=== PATIENT | female | born 1970 | race African-American/Black ===

== ENCOUNTER 2016-08-15 10:00 | Day surgery (SDC) | payer MEDICARE, OTHER ==
--- NOTE | ~2016-08-15 | EGD ---
EGD REPORT [facility] [address] [address] NAME: NAOMI MALIK : 66 STATUS : REG [facility]#: [id number] AGE: 46 ADM/REG DATE : 08/15/16 MR#: [id number] REPORT SERV DATE: 08/15/16 DICTATED BY: EDWARD BEARD DATE: 08/15/16 REPORT STATUS : Draft TRANSCRIBED BY: [facility] DATE: 08/15/16 Endoscopy Center Patient Name: Naomi Malik Date of : 1970 Attending MD: EDWARD BEARD MD Procedure Date No Time: 08/15/2016 Procedure: Upper GI endoscopy Indications: Chest pain (non cardiac) Referring MD: PEARL WILSON Medicines: Monitored Anesthesia Care Complications: No immediate complications. Procedure: Pre-Anesthesia Assessment: - ASA Grade Assessment: III - A patient with severe systemic disease. After obtaining informed consent, the endoscope was passed under direct vision. Throughout the procedure, the patient's blood pressure, pulse, and oxygen saturations were monitored continuously. The GIF [id number] was introduced through the mouth, and advanced to the second part of duodenum. The upper GI endoscopy was accomplished without difficulty. The patient tolerated the procedure well. Findings: The Z-line was irregular and was found at the gastroesophageal junction. Biopsies were taken with a cold forceps for histology. The entire examined stomach was normal. The duodenal bulb and 2nd part of the duodenum were normal. The cardia and gastric fundus were normal on retroflexion. Impression: - Z-line irregular, at the gastroesophageal junction. Biopsied. - Normal stomach. - Normal duodenal bulb and 2nd part of the duodenum. Recommendation: - Patient has a contact number available for emergencies. The signs and symptoms of potential delayed complications were discussed with the patient. Return to normal activities tomorrow. Written discharge instructions were provided to the patient. - Regular diet. - Continue present medications. - Follow an antireflux regimen. - Return to GI clinic in 4 weeks. EGD REPORT [facility] [address] [place] [address]. [id number] NAME: NAOMI MALIK : [birth year] STATUS : REG [facility]#: [id number] AGE: 46 ADM/REG DATE : 08/15/16 MR#: [id number] REPORT SERV DATE: 08/15/16 DICTATED BY: EDWARD BEARD DATE: 08/15/16 REPORT STATUS : Draft TRANSCRIBED BY: [employer] DATE: 08/15/16 Procedure Code(s): --- Professional --- 55628, Esophagogastroduodenoscopy, flexible, transoral; with biopsy, single or multiple Diagnosis Code(s): --- Professional --- K22.8, Other specified diseases of esophagus R07.89, Other chest pain CPT copyright 2013 [employer]. All rights reserved. The codes documented in this report are preliminary and upon content assistant review may be revised to meet current compliance requirements. EDWARD BEARD MD 08/15/2016 12:48 PM This report has been signed electronically. Number of Addenda: 0 Note Initiated On: 08/15/2016 12:28 PM Scope Withdrawal Time 0 hours 0 minutes 0 seconds [address] [place] [address]
[~2016-08-15 10:00] MED LIST: ASAB PO; CELLCEPT5 PO; CITRACAL PO; CLARIT10 PO; FLOVENT110 INH; IMDUR30 PO; L40 PO; LOTE5 PO; MAGOX4 PO; NEXIUM40 PO; P5 PO; PAX20 PO; PRAVACHOL40 MG PO; ROCALTROL0.25 MCG PO; SODBICAR10 PO; TUMS PO; VITD PO
== END 2016-08-15 23:59 | disposition home or self-care (01) ==
LOC: DMU 10:00
PROVIDERS: Internal Medicine Gastroenterology
PROC: 0DB48ZX Excision of Esophagogastric Junction, Via Natural or Artificial Opening Endoscopic, Diagnostic (ICD-10-PCS; principal; 2016-08-15 10:00)
DX: K20.9 Esophagitis, unspecified (principal); J45.909 Unspecified asthma, uncomplicated; I10 Essential (primary) hypertension; E78.00 Pure hypercholesterolemia, unspecified; E66.01 Morbid (severe) obesity due to excess calories; E78.5 Hyperlipidemia, unspecified; Z86.73 Personal history of transient ischemic attack (TIA), and cerebral infarction without residual deficits; Z94.0 Kidney transplant status; Z88.0 Allergy status to penicillin; Z88.2 Allergy status to sulfonamides; Z88.5 Allergy status to narcotic agent; Z88.8 Allergy status to other drugs, medicaments and biological substances; Z88.1 Allergy status to other antibiotic agents; Z79.82 Long term (current) use of aspirin; Z79.899 Other long term (current) drug therapy; Z98.890 Other specified postprocedural states
CPT/HCPCS: 84703; 88305

== ENCOUNTER 2016-12-29 14:34 | Inpatient (IN) | payer MEDICARE, OTHER ==
[~2016-12-29] VITALS: Ht 165.1 cm; Wt 101.7 kg
--- NOTE | ~2016-12-29 | HP ---
History And Physical [facility] [address] [place]. [address] NAME: ASHLYN MALIK : [birth year] STATUS : ADM IN [facility]#: [id number] AGE: 46 ADM/REG DATE : 12/29/16 MR#: [id number] REPORT SERV DATE: 12/29/16 DICTATED BY: DATE: REPORT STATUS : Draft TRANSCRIBED BY: MODL DATE: 12/29/16 DATE OF ADMISSION: 12/29/2016 CHIEF COMPLAINT: Right thigh pain. HISTORY OF PRESENT ILLNESS: Ms. Malik is a 46-year-old black female with end-stage renal disease. She is status post donor renal transplant in 2014 at [place]. She feels like her baseline creatinine is somewhere in the 2s. She has had a two month history of right thigh pain and was diagnosed with thrombophlebitis and felt to have a secondary infection as well, given clindamycin and despite this, she has continued to have induration to the area, redness, swelling and pain that is debilitating. Therefore, she presented to the emergency room. She is denying any fevers, chills, but states her pain exacerbates at night when she lies down. No swelling to the ankles, no streaking of thigh. No shortness of breath, chest pain, tightness, or pressure. PAST MEDICAL HISTORY: End-stage renal disease felt due to hypertension. 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 She has got secondary hyperparathyroidism and underwent a parathyroidectomy in 2012 and has had problems with recurrent hypocalcemia. FAMILY MEDICAL HISTORY: Negative for any end-stage renal disease. SOCIAL HISTORY: She lives by herself. No tobacco, alcohol, or illicit drug use. Currently unemployed. ALLERGIES: CINACALCET, PENICILLIN, SULFA, QUINOLONES, THEOPHYLLINE, CODEINE, AZITHROMYCIN, AND ATORVASTATIN. MEDICATIONS: Unavailable for review at this time. We will review when med rec is completed. REVIEW OF SYSTEMS: A 12-point review of systems obtained and is negative with the exception of that in HPI. PHYSICAL EXAMINATION: VITAL SIGNS: Temp 98.5, blood pressure 134/75, pulse 82, respiratory rate 18, O2 saturation is 100% on room air. GENERAL: This is a pleasant cooperative white female. She is awake, alert, and oriented x3. No acute distress. Answers questions appropriately. HEENT: Normocephalic, atraumatic. Conjunctivae are clear. Sclerae are anicteric. Pupils are equal and round. Oral mucosa is moist. NECK: Supple. Carotids are brisk. Neck veins are flat. No lymphadenopathy. CHEST: Respirations are even and unlabored. Breath sounds clear to auscultation. CARDIAC: Heart rate is regular. No murmur, rub, or gallop. ABDOMEN: Soft and nontender. Bowel sounds active and no masses or hepatosplenomegaly. Palpable transplanted kidney to the right lower quadrant. No CVA tenderness. BACK: Within normal limits. History And Physical [place] [address] [facility] [place]. [address] NAME: ASHLYN MALIK : [birth year] STATUS : ADM IN [facility]#: [id number] AGE: 46 ADM/REG DATE : 12/29/16 MR#: [id number] REPORT SERV DATE: 12/29/16 DICTATED BY: DATE: REPORT STATUS : Draft TRANSCRIBED BY: MODL DATE: 12/29/16 EXTREMITIES: No edema to the ankles. No cyanosis. No clubbing. To the right thigh, she has approximately a tennis ball size diameter area of induration without fluctuance. There is open area approximately 2 inches in length. No drainage is noted from it. There is some mild erythema. No specific warmth. NEURO: No focal deficits. PSYCHIATRIC: Mood and affect are pleasant and appropriate. PERTINENT LABS AND X-RAYS: WBCs 5.1, H and H 12 and 37, platelets 233,000. IMPRESSION: 1. Right thigh with possible secondary cellulitis. 2. Thrombophlebitis. 3. Renal transplant, donor in 2014 at [place] with baseline creatinine in the 2s. 4. Hypertension. 5. Multiple drug allergies. She denies any anaphylaxis. PLAN: Admit. Follow up on the ultrasound that is being obtained at this time, see if it shows an abscess. We are starting her empirically on Maxipime and vancomycin and start usual medicines as appropriate, and further orders and recommendations pending clinical course. ARASELI/LOIDA TARUN Lopez / [id number] CC: Daria Ortiz M.D.
--- NOTE | ~2016-12-29 | OP ---
Record Of Operation [facility] [address] [place]. [address] NAME: ASHLYN MUÑIZ : 66 STATUS : ADM IN PAT#: [id number] AGE: 46 ADM/REG DATE : 12/29/16 MR#: [id number] REPORT SERV DATE: 12/31/16 DICTATED BY: FAISAL RAUSCH DATE: 12/31/16 REPORT STATUS : Draft TRANSCRIBED BY: MODL DATE: 12/31/16 DATE OF PROCEDURE: 12/31/2016 PREOPERATIVE DIAGNOSIS: Inflammatory infected mass of the right inner upper thigh. POSTOPERATIVE DIAGNOSIS: Inflammatory infected mass of the right inner upper thigh. SURGERY PERFORMED: Primary excision of inflammatory mass, upper inner thigh, approximately 8 x 4 cm. METROLOGY TECHNICIAN: Cristino. DESCRIPTION OF PROCEDURE: The patient placed under general anesthesia. The right thigh prepped and draped in a sterile fashion. Preoperatively, she was found to have an area on the inner thigh of indurated skin with excoriation and a subcutaneous mass affect. An elliptical incision made around this lesion again approximately 8 x 4 cm, carried through the skin and subcutaneous tissue. The cautery was used to remove the inflammatory mass from the subcutaneous tissue. No purulent material was noted and this appeared to be more inflammatory than infected. The wound was then irrigated and closed with 3-0 Vicryl for the subcutaneous tissue. Skin closed with interrupted vertical 4-0 Prolene sutures. Then sterile dressings were applied. Estimated blood loss 20 mL. She tolerated the procedure well and went to recovery room in good condition. MG/LOIDA Faisal Rausch M.D. / [id number] CC: Daria Ortiz M.D.
[2016-12-29 16:12] LABS: BASOPHILS 0.2 %; BASOPHILS ABSOLUTE 0.01 10/3/uL (0.0-0.16); EOSINOPHILS 1.2 %; EOSINOPHILS ABSOLUTE 0.06 10/3/uL (0.0-0.53); ER CBC TAT 0 Hrs 07 Mins; HEMOGLOBIN 12.1 g/dL (12.0-16.0); IMMATURE GRANULOCYTES 0.8 %; IMMATURE GRANULOCYTES ABSOLUTE 0.04 10/3/uL (0.0-0.11); LYMPHOCYTES 31.8 %; LYMPHOCYTES ABSOLUTE 1.62 10/3/uL (0.67-4.30); MEAN CORPUS HGB CONC 32.6 g/dL (32.0-36.0); MEAN CORPUSCULAR HEMOGLOB 28.5 pg (26.0-34.0); MEAN CORPUSCULAR VOLUME 87.5 fL (80-100); MEAN PLATELET VOLUME 10.6 fL (9.2-13.0); MONOCYTES ABSOLUTE 0.46 10/3/uL (0.21-1.20); NEUTROPHILS ABSOLUTE 2.91 10/3/uL (2.02-8.40); RBC DISTRIBUTION WIDTH 14.6 % (12.0-16.0); RED CELL COUNT 4.24 10/6/uL (4.0-5.6); WHITE BLOOD CELLS 5.1 10/3/uL (4.5-10.5)
[2016-12-29 16:15] LABS: HEMATOCRIT 37.1 % (36.0-48.0); MANUAL DIFF NO %; PLATELET COUNT 233 10/3/uL (150-400)
[2016-12-29 16:28] LABS: CHLORIDE, SERUM 99 MMOL/L (96-112); CO2 (CARBON DIOXIDE) 24 MMOL/L (24-34); CPK 136 U/L (0-200); POTASSIUM, SERUM 4.1 MMOL/L (3.5-5.3); SGPT(ALT) 22 U/L (5-65); SODIUM, SERUM 133 MMOL/L (135-148); TOTAL BILIRUBIN 0.6 MG/DL (0-1.2); TOTAL PROTEIN 8.4 G/DL (6.0-8.5)
[2016-12-29 16:41] LABS: A/G RATIO 0.9 (0.7-1.9); ALBUMIN 3.9 G/DL (3.5-5.0); ALKALINE PHOSPHATASE 151 U/L (45-117); BUN (BLOOD UREA NITROGEN) 25 MG/DL (6-23); GFR AFRICAN AMERICAN 28 ML/MIN (>=60); GFR NON AFRICAN AMERICAN 24 ML/MIN (>=60); GLOBULIN 4.5 G/DL (2.5-4.1); GLUCOSE, SERUM 89 MG/DL (60-99); SGOT(AST) 25 U/L (5-40)
[2016-12-29] MEDS ORDERED: BREO ELLIPTA INH (17:06)
[2016-12-29] MEDS ORDERED: TUMSROLL PO (17:07)
[2016-12-29] MEDS ORDERED: PROAIR HFA INH (17:07)
[2016-12-29] MEDS ORDERED: IMDUR30 PO (17:08)
[2016-12-29] MEDS ORDERED: MIRALAX POWDER1 PKT PO (17:08)
[2016-12-29] MEDS ORDERED: CELLCEPT5 PO (17:09)
[2016-12-29] MEDS ORDERED: PRAVAC PO (17:09)
[2016-12-29] MEDS ORDERED: AMB5 PO (17:10)
[2016-12-29] MEDS ORDERED: CLARIT10 PO (17:11)
[2016-12-29] MEDS ORDERED: MAGOX4 PO (17:11)
[2016-12-29] MEDS ORDERED: [UNRECOGNIZED DRUG - OTHER] IV (17:11)
[2016-12-29] MEDS ORDERED: SODBICAR10 PO (17:12)
[2016-12-29] MEDS ORDERED: CENTRUM PO (17:12)
[2016-12-29] MEDS ORDERED: ASAB PO (17:13)
[2016-12-29] MEDS ORDERED: CITRACAL PO (17:13)
[2016-12-29] MEDS ORDERED: PAX20 PO (17:13)
[2016-12-29] MEDS ORDERED: NEXIUM40 PO (17:13)
[2016-12-29] MEDS ORDERED: L40 PO (17:14)
[2016-12-29] MEDS ORDERED: TESS PO (17:14)
[2016-12-29] MEDS ORDERED: LOTE10 PO (17:14)
[2016-12-29] MEDS ORDERED: P5 PO (17:14)
[2016-12-29] MEDS ORDERED: ROCALTROL 0.0.25 MCG PO (17:15)
[2016-12-29] MEDS ORDERED: FOLIC PO (17:15)
[2016-12-29] MEDS ORDERED: MAXIMUM D3 PO (17:16)
[2016-12-29] MEDS ORDERED: NATPARA SC (17:24)
[2016-12-30 06:32] LABS: BASOPHILS 0 %; EOSINOPHILS 1.2 %; EOSINOPHILS ABSOLUTE 0.04 10/3/uL (0.0-0.53); HEMATOCRIT 34.3 % (36.0-48.0); HEMOGLOBIN 11.2 g/dL (12.0-16.0); IMMATURE GRANULOCYTES 0.9 %; IMMATURE GRANULOCYTES ABSOLUTE 0.03 10/3/uL (0.0-0.11); LYMPHOCYTES 30.9 %; LYMPHOCYTES ABSOLUTE 1.04 10/3/uL (0.67-4.30); MEAN CORPUS HGB CONC 32.7 g/dL (32.0-36.0); MEAN CORPUSCULAR HEMOGLOB 28.6 pg (26.0-34.0); MEAN CORPUSCULAR VOLUME 87.5 fL (80-100); MEAN PLATELET VOLUME 10.4 fL (9.2-13.0); MONOCYTES 9.5 %; MONOCYTES ABSOLUTE 0.32 10/3/uL (0.21-1.20); NEUTROPHILS 57.5 %; NEUTROPHILS ABSOLUTE 1.94 10/3/uL (2.02-8.40); PLATELET COUNT 183 10/3/uL (150-400); RBC DISTRIBUTION WIDTH 14.3 % (12.0-16.0); RED CELL COUNT 3.92 10/6/uL (4.0-5.6); WHITE BLOOD CELLS 3.4 10/3/uL (4.5-10.5)
[2016-12-30 06:34] LABS: MANUAL DIFF NO %
[2016-12-30 06:44] LABS: ALBUMIN 3.3 G/DL (3.5-5.0); BUN (BLOOD UREA NITROGEN) 25 MG/DL (6-23); CALCIUM, SERUM 9.8 MG/DL (8.5-10.4); CHLORIDE, SERUM 103 MMOL/L (96-112); CO2 (CARBON DIOXIDE) 27 MMOL/L (24-34); GFR AFRICAN AMERICAN 28 ML/MIN (>=60); GFR NON AFRICAN AMERICAN 24 ML/MIN (>=60); PHOSPHORUS, SERUM 3.8 MG/DL (2.5-4.5); POTASSIUM, SERUM 3.9 MMOL/L (3.5-5.3); SODIUM, SERUM 137 MMOL/L (135-148)
[2016-12-30 06:45] LABS: GLUCOSE, SERUM 120 MG/DL (60-99)
[2016-12-31 06:40] LABS: BASOPHILS 0 %; EOSINOPHILS 1.7 %; EOSINOPHILS ABSOLUTE 0.08 10/3/uL (0.0-0.53); HEMATOCRIT 33.9 % (36.0-48.0); HEMOGLOBIN 10.9 g/dL (12.0-16.0); IMMATURE GRANULOCYTES 0.8 %; IMMATURE GRANULOCYTES ABSOLUTE 0.04 10/3/uL (0.0-0.11); LYMPHOCYTES 31.2 %; LYMPHOCYTES ABSOLUTE 1.48 10/3/uL (0.67-4.30); MEAN CORPUS HGB CONC 32.2 g/dL (32.0-36.0); MEAN CORPUSCULAR HEMOGLOB 28.1 pg (26.0-34.0); MEAN CORPUSCULAR VOLUME 87.4 fL (80-100); MEAN PLATELET VOLUME 10.6 fL (9.2-13.0); MONOCYTES 8.2 %; MONOCYTES ABSOLUTE 0.39 10/3/uL (0.21-1.20); NEUTROPHILS 58.1 %; NEUTROPHILS ABSOLUTE 2.76 10/3/uL (2.02-8.40); PLATELET COUNT 197 10/3/uL (150-400); RBC DISTRIBUTION WIDTH 14.7 % (12.0-16.0); RED CELL COUNT 3.88 10/6/uL (4.0-5.6)
[2016-12-31 06:41] LABS: MANUAL DIFF NO %; WHITE BLOOD CELLS 4.8 10/3/uL (4.5-10.5)
[2016-12-31 06:51] LABS: ALBUMIN 3.2 G/DL (3.5-5.0); CALCIUM, SERUM 9.2 MG/DL (8.5-10.4); CHLORIDE, SERUM 103 MMOL/L (96-112); CO2 (CARBON DIOXIDE) 27 MMOL/L (24-34); CREATININE 2.35 MG/DL (0.55-1.02); GFR AFRICAN AMERICAN 27 ML/MIN (>=60); GFR NON AFRICAN AMERICAN 24 ML/MIN (>=60); PHOSPHORUS, SERUM 3.5 MG/DL (2.5-4.5); POTASSIUM, SERUM 4.2 MMOL/L (3.5-5.3); SODIUM, SERUM 140 MMOL/L (135-148)
[2016-12-31 06:53] LABS: BUN (BLOOD UREA NITROGEN) 31 MG/DL (6-23); GLUCOSE, SERUM 92 MG/DL (60-99)
[2017-01-01 05:05] LABS: BASOPHILS 0 %; EOSINOPHILS 0 %; HEMATOCRIT 33.9 % (36.0-48.0); HEMOGLOBIN 10.9 g/dL (12.0-16.0); IMMATURE GRANULOCYTES 0.5 %; IMMATURE GRANULOCYTES ABSOLUTE 0.04 10/3/uL (0.0-0.11); LYMPHOCYTES 14.8 %; LYMPHOCYTES ABSOLUTE 1.11 10/3/uL (0.67-4.30); MEAN CORPUS HGB CONC 32.2 g/dL (32.0-36.0); MEAN CORPUSCULAR HEMOGLOB 28.2 pg (26.0-34.0); MEAN CORPUSCULAR VOLUME 87.6 fL (80-100); MEAN PLATELET VOLUME 10.3 fL (9.2-13.0); MONOCYTES 3.9 %; MONOCYTES ABSOLUTE 0.29 10/3/uL (0.21-1.20); NEUTROPHILS 80.8 %; NEUTROPHILS ABSOLUTE 6.08 10/3/uL (2.02-8.40); PLATELET COUNT 201 10/3/uL (150-400); RBC DISTRIBUTION WIDTH 14.8 % (12.0-16.0); RED CELL COUNT 3.87 10/6/uL (4.0-5.6)
[2017-01-01 05:09] LABS: MANUAL DIFF NO %; WHITE BLOOD CELLS 7.5 10/3/uL (4.5-10.5)
[2017-01-01 05:11] LABS: ALBUMIN 3.4 G/DL (3.5-5.0); BUN (BLOOD UREA NITROGEN) 32 MG/DL (6-23); CALCIUM, SERUM 9.4 MG/DL (8.5-10.4); CHLORIDE, SERUM 101 MMOL/L (96-112); CREATININE 2.28 MG/DL (0.55-1.02); GFR AFRICAN AMERICAN 28 ML/MIN (>=60); GFR NON AFRICAN AMERICAN 25 ML/MIN (>=60); PHOSPHORUS, SERUM 3.4 MG/DL (2.5-4.5); POTASSIUM, SERUM 4.4 MMOL/L (3.5-5.3); SODIUM, SERUM 135 MMOL/L (135-148)
[2017-01-01 05:12] LABS: CO2 (CARBON DIOXIDE) 22 MMOL/L (24-34); GLUCOSE, SERUM 136 MG/DL (60-99)
[2017-01-02 06:36] LABS: BASOPHILS 0.2 %; BASOPHILS ABSOLUTE 0.01 10/3/uL (0.0-0.16); EOSINOPHILS 0.8 %; EOSINOPHILS ABSOLUTE 0.04 10/3/uL (0.0-0.53); HEMATOCRIT 34.8 % (36.0-48.0); HEMOGLOBIN 11.2 g/dL (12.0-16.0); IMMATURE GRANULOCYTES 1.3 %; IMMATURE GRANULOCYTES ABSOLUTE 0.07 10/3/uL (0.0-0.11); LYMPHOCYTES 21.7 %; LYMPHOCYTES ABSOLUTE 1.15 10/3/uL (0.67-4.30); MANUAL DIFF NO %; MEAN CORPUS HGB CONC 32.2 g/dL (32.0-36.0); MEAN CORPUSCULAR HEMOGLOB 28.4 pg (26.0-34.0); MEAN CORPUSCULAR VOLUME 88.3 fL (80-100); MEAN PLATELET VOLUME 10.1 fL (9.2-13.0); MONOCYTES 7.7 %; MONOCYTES ABSOLUTE 0.41 10/3/uL (0.21-1.20); NEUTROPHILS 68.3 %; NEUTROPHILS ABSOLUTE 3.63 10/3/uL (2.02-8.40); PLATELET COUNT 208 10/3/uL (150-400); RBC DISTRIBUTION WIDTH 14.9 % (12.0-16.0); RED CELL COUNT 3.94 10/6/uL (4.0-5.6); WHITE BLOOD CELLS 5.3 10/3/uL (4.5-10.5)
[2017-01-02 06:47] LABS: ALBUMIN 3.3 G/DL (3.5-5.0); CALCIUM, SERUM 8.7 MG/DL (8.5-10.4); CHLORIDE, SERUM 102 MMOL/L (96-112); CO2 (CARBON DIOXIDE) 24 MMOL/L (24-34); CREATININE 1.95 MG/DL (0.55-1.02); GFR AFRICAN AMERICAN 34 ML/MIN (>=60); GFR NON AFRICAN AMERICAN 30 ML/MIN (>=60); PHOSPHORUS, SERUM 2.9 MG/DL (2.5-4.5); POTASSIUM, SERUM 4.1 MMOL/L (3.5-5.3); SODIUM, SERUM 136 MMOL/L (135-148)
[2017-01-02 06:48] LABS: BUN (BLOOD UREA NITROGEN) 36 MG/DL (6-23); GLUCOSE, SERUM 87 MG/DL (60-99)
[2017-01-03 05:56] LABS: BASOPHILS 0 %; EOSINOPHILS 1.7 %; EOSINOPHILS ABSOLUTE 0.08 10/3/uL (0.0-0.53); HEMATOCRIT 33.9 % (36.0-48.0); HEMOGLOBIN 10.9 g/dL (12.0-16.0); IMMATURE GRANULOCYTES 2.3 %; IMMATURE GRANULOCYTES ABSOLUTE 0.11 10/3/uL (0.0-0.11); LYMPHOCYTES 20.5 %; LYMPHOCYTES ABSOLUTE 0.96 10/3/uL (0.67-4.30); MEAN CORPUS HGB CONC 32.2 g/dL (32.0-36.0); MEAN CORPUSCULAR HEMOGLOB 28.4 pg (26.0-34.0); MEAN CORPUSCULAR VOLUME 88.3 fL (80-100); MEAN PLATELET VOLUME 10.5 fL (9.2-13.0); MONOCYTES 9.2 %; MONOCYTES ABSOLUTE 0.43 10/3/uL (0.21-1.20); NEUTROPHILS 66.3 %; NEUTROPHILS ABSOLUTE 3.11 10/3/uL (2.02-8.40); PLATELET COUNT 216 10/3/uL (150-400); RBC DISTRIBUTION WIDTH 14.9 % (12.0-16.0); RED CELL COUNT 3.84 10/6/uL (4.0-5.6); WHITE BLOOD CELLS 4.7 10/3/uL (4.5-10.5)
[2017-01-03 05:57] LABS: MANUAL DIFF NO %
[2017-01-03 06:09] LABS: ALBUMIN 3.4 G/DL (3.5-5.0); BUN (BLOOD UREA NITROGEN) 39 MG/DL (6-23); CALCIUM, SERUM 8.5 MG/DL (8.5-10.4); CHLORIDE, SERUM 101 MMOL/L (96-112); CO2 (CARBON DIOXIDE) 28 MMOL/L (24-34); CREATININE 2.11 MG/DL (0.55-1.02); GFR AFRICAN AMERICAN 31 ML/MIN (>=60); GFR NON AFRICAN AMERICAN 27 ML/MIN (>=60); GLUCOSE, SERUM 86 MG/DL (60-99); PHOSPHORUS, SERUM 3.5 MG/DL (2.5-4.5); POTASSIUM, SERUM 3.9 MMOL/L (3.5-5.3); SODIUM, SERUM 137 MMOL/L (135-148)
[2017-01-03] MEDS ORDERED: PCET PO (16:51)
== END 2017-01-03 18:41 | disposition home or self-care (01) | DRG 570 ==
LOC: ER 14:34 → 5SO 17:36
PROVIDERS: Emergency Medicine; Nurse Practitioner; Registered Nurse; Surgery Vascular Surgery
PROC: 0JBL0ZZ Excision of Right Upper Leg Subcutaneous Tissue and Fascia, Open Approach (ICD-10-PCS; principal; 2016-12-31 09:45)
DX: L03.116 Cellulitis of left lower limb (principal); N18.6 End stage renal disease; I80.299 Phlebitis and thrombophlebitis of other deep vessels of unspecified lower extremity; I12.0 Hypertensive chronic kidney disease with stage 5 chronic kidney disease or end stage renal disease; N25.81 Secondary hyperparathyroidism of renal origin; Z94.0 Kidney transplant status; Z99.2 Dependence on renal dialysis; Z88.0 Allergy status to penicillin; Z88.1 Allergy status to other antibiotic agents; Z88.2 Allergy status to sulfonamides; Z88.5 Allergy status to narcotic agent; Z86.73 Personal history of transient ischemic attack (TIA), and cerebral infarction without residual deficits
CPT/HCPCS: 80053; 80069; 82550; 83735; 85025; 87040; 88307; 88341; 88342; 93971; 94640; 96374; 96375; 97161-GP; 99285; A9270-GY; G8978-CH-GP; G8979-CH-GP; G8980-CH-GP; J0690; J0692; J1170; J2250; J2270; J2405; J3010; J3370